=== PATIENT | male | born 1995 | race Two or more races ===

== ENCOUNTER 2025-03-16 17:13 | Emergency (ER) | payer MEDICAID, SELFPAY ==
[2025-03-16 17:55] VITALS: BP 159/96; PULSE 110; RESP 18; TEMP 37.1; O2SAT 98; BMI 28.3
--- NOTE | 2025-03-16 18:01 | EKG_ITS ---
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
--- NOTE | 2025-03-16 18:02 | PD.EDRME ---
Rapid Medical Screening Exam RME Arrival date/time: 03/16/25 17:13 Chief Complaint: Chest Pain Time Seen by Provider: 03/16/25 17:55 Vital signs: Vital Signs Temperature 98.8 F 03/16/25 17:55 Pulse Rate 110 H 03/16/25 17:55 Respiratory Rate 18 03/16/25 17:55 Blood Pressure 159/96 H 03/16/25 17:55 Pulse Oximetry (%) 98 03/16/25 17:55 Oxygen Delivery Method Room Air 03/16/25 17:55
--- NOTE | 2025-03-16 18:07 | PD.EDRME ---
Rapid Medical Screening Exam E Arrival date/time: 03/16/25 17:13 29-year-old male presents to the emergency department with a complaint of chest pain as well as intermittent constipation as well as a rash to the face. Patient complains of being an alcoholic. Chief Complaint: Chest Pain Time Seen by Provider: 03/16/25 17:55 Vital signs: Vital Signs Temperature 98.8 F 03/16/25 17:55 Pulse Rate 110 H 03/16/25 17:55 Respiratory Rate 18 03/16/25 17:55 Blood Pressure 159/96 H 03/16/25 17:55 Pulse Oximetry (%) 98 03/16/25 17:55 Oxygen Delivery Method Room Air 03/16/25 17:55 Vital signs reviewed by provider: Yes
[2025-03-16 18:26] LABS: Collection Type, Urine Clean Catch; RBC,Urine 0 /hpf (0-3); Squamous Epithelial Cell,Urine 0 /hpf (0-5); WBC,Urine 0 /hpf (0-5)
[2025-03-16 18:28] LABS: Basophils # (Auto) 0.1 Thou/mm3 (0.0-0.2); Basophils % (Auto) 2 % (0-2.5); Eosinophils # (Auto) 0.1 Thou/mm3 (0.0-0.5); Eosinophils % (Auto) 1 % (0-10); Hematocrit 43.7 % (41.0-53.0); Immature Granulocytes % (Auto) 0 % (0-0); Immature Granulocytes Auto 0.02 Thou/mm3 (0.00-0.00); Lymphocytes # (Auto) 3.4 Thou/mm3 (1.0-4.8); Lymphocytes % (Auto) 44 % (10-50); Mean Corpuscular HGB Conc 36.6 g/dl (31.0-37.0); Mean Corpuscular Hemoglobin 31.9 pg (25.0-35.0); Mean Corpuscular Volume 87 fL (80-100); Monocytes # (Auto) 0.7 Thou/mm3 (0.0-0.8); Monocytes % (Auto) 9 % (0-12); Neutrophils # (Auto) 3.5 Thou/mm3 (1.8-7.7); Neutrophils % (Auto) 45 % (37-80); Nucleated Red Blood Cell % 0 /100 WBC (0); Platelet Count 329 Thou/mm3 (140-440); RDW Standard Deviation 44.5 fL (35.1-43.9); Red Blood Count 5.02 Miln/mm3 (4.50-5.90); White Blood Count 7.9 Thou/mm3 (3.8-10.6)
[2025-03-16 18:38] LABS: Bacteria,Urine Rare; Bilirubin,Urine Negative (Negative); Blood,Urine Negative (Negative); Clarity,Urine Clear (Clear/Hazy); Color,Urine Lt-Yellow (Lt Yel-Yel); Glucose, Urine Negative (Negative); Ketones,Urine Negative (Negative); Leukocyte Esterase,Urine Negative (Negative); Nitrite,Urine Negative (Negative); PH,Urine 6.5 (5.0-7.0); Protein,Urine 1+ (Neg - Trace); Specific Gravity,Urine 1.009 (1.001-1.035); Urobilinogen,Urine Negative mg/dL (0.0-1.0)
[2025-03-16 18:43] LABS: Amphetamine/Methamp Scrn,U Negative (Negative); Barbiturate Screen,Urine Negative (Negative); Benzodiazepines Screen,Urine Negative (Negative); Benzoylecgonine Screen, Ur Negative (Negative); Fentanyl Screen,Urine Negative (Negative); Opiate Screen,Urine Negative (Negative); THC Screen,Urine Positive (Negative)
[2025-03-16 18:52] LABS: B-Type Natriuretic Peptide < 20 pg/mL (0-100)
[2025-03-16 19:04] LABS: Alanine Aminotransferase 471 U/L (10-49); Albumin, Serum 5.4 gm/dL (3.5-5.0); Albumin/Globulin Ratio 1.9 (1.2-2.2); Alcohol, Blood Medical 310.3 mg/dL (0-10.0); Alkaline Phosphatase 120 U/L (46-116); Anion Gap 14 (7-16); Aspartate Amino Transferase 451 U/L (0-34); BUN/Creatinine Ratio 8 Ratio (12-20); Bilirubin,Total 1.3 mg/dL (0.3-1.2); Blood Urea Nitrogen 7 mg/dL (9-23); Calcium 9.5 mg/dL (8.3-10.6); Calcium (Corrected) 9.5 mg/dL (8.5-10.1); Carbon Dioxide 21.9 mMol/L (20.0-31.0); Chloride 106 mMol/L (98-107); Creatinine (Component) 0.9 mg/dL (0.6-1.3); Estimated Creatinine Clearance 98.2 mL/min (>60); Globulin 2.8 gm/dL (2.3-3.5); Glucose 103 mg/dL (74-106); Osmolality,Calculated 281 (275-295); Potassium 3.5 mMol/L (3.4-5.1); Sodium 142 mMol/L (136-145); Total Protein 8.2 gm/dL (5.7-8.2); Troponin I < 0.020 ng/mL (0.0-0.045); eGFR > 60 See Note
[2025-03-16 19:25] LABS: Partial Thromboplastin Time 24.2 Seconds (22.0-36.0); Prothrombin Time 10.6 Seconds (9.0-12.2)
[2025-03-16 20:51] VITALS: BP 156/101; PULSE 105; RESP 19; TEMP 36.9; O2SAT 95
--- NOTE | 2025-03-16 21:30 | PD.EDADULT ---
ED General RME/HPI General Chief complaint: Chest Pain Stated complaint: CHEST PRESSURE & CRAMPING (THINK I HACE CHIRROSIS) Time Seen by Provider: 03/16/25 17:55 Arrival date/time: 03/16/25 17:13 RME / HPI RME / HPI narrative: Dr. Cruz?s Main ED Evaluation: 29yo male with a history of alcohol abuse presents to the ED for a chief complaint of alcohol intoxication. Patient states I am an alcoholic and was requesting to know what his labs show. Patient does not have any medical complaints at this time. Patient denies any chest pain, abdominal pain, shortness of breath, headache or any other associated symptoms. NKA. Related Data Previous Rx's ?Medication ?Instructions ?Recorded ibuprofen 800 mg tablet 800 mg PO TID PRN pain #30 tabs 08/20/21 Allergies Allergy/AdvReac Type Severity Reaction Status Date / Time No Known Allergies Allergy Verified 03/16/25 17:18 Review of Systems Review of Systems Systems Reviewed: All systems reviewed, normal except as documented Past Medical History Social History SMOKING STATUS: Never smoker ED Exam Narrative Physical exam: GENERAL APPEARANCE: AxOx4, generally well-appearing, no acute distress. HEENT: NC, AT. MMM. EOMI, clear conjunctiva, oropharynx clear. NECK: Supple without lymphadenopathy. No stiffness or restricted ROM. HEART: Normal rate and regular rhythm, normal S1/S1, no m/r/g LUNGS: CTAB, moving air well. No crackles or wheezes are heard. ABDOMEN: Soft, nontender, nondistended with good bowel sounds heard. BACK: No midline C/T/L spine pain or deformity, No CVAT, no obvious deformity. EXTREMITIES: Without cyanosis, clubbing or edema. MUSCULOSKELETAL: FROM of all major joints, no chest tenderness NEUROLOGICAL: Grossly nonfocal. Alert and oriented, moving all 4 extremities. CN not formally tested but appear grossly intact. Observed to ambulate with normal gait. Skin: Warm and dry without any rash. Course Quality Measures none Orders Category Date Time Status EKG (ED ONLY) *Do not use* NOW Care 03/16/25 18:01 Completed EKG (ED Only) Stat Exams 03/16/25 18:01 Draft Alcohol, Blood Medical Stat Lab 03/16/25 18:10 Completed B-Type Natriuretic Peptide Stat Lab 03/16/25 18:10 Completed CBC Stat Lab 03/16/25 18:10 Completed Comprehensive Metabolic Panel Stat Lab 03/16/25 18:10 Completed Drug Screen,Urine Stat Lab 03/16/25 18:10 Completed Magnesium Stat Lab 03/16/25 18:10 Completed Partial Thromboplastin Time Stat Lab 03/16/25 18:10 Completed Prothrombin Time with INR Stat Lab 03/16/25 18:10 Completed Troponin I Stat Lab 03/16/25 18:10 Completed Urinalysis Stat Lab 03/16/25 18:10 Completed Vital Signs Vital signs: Vital Signs Temperature 98.8 F 03/16/25 17:55 Pulse Rate 110 H 03/16/25 17:55 Respiratory Rate 18 03/16/25 17:55 Blood Pressure 159/96 H 03/16/25 17:55 Pulse Oximetry (%) 98 03/16/25 17:55 Oxygen Delivery Method Room Air 03/16/25 17:55 Discharge Plan Plan Patient Disposition: HOME (Self Care) Patient condition on transfer: Stable Prescriptions/Referrals Prescriptions/Med Rec: No Action ibuprofen 800 mg tablet 800 mg PO TID PRN (Reason: pain) Qty: 30 0RF Referrals: No Primary/Family,Physician [Primary Care Provider] - In 1 week Problem List Clinical Impression: Alcohol abuse, Alcohol intoxication, Acute alcoholic hepatitis Patient/Caregiver Discharge Instructions Education Materials: ED Alcohol Intoxication, ED Alcohol Abuse Additional Instructions: Do not drink alcohol in excess, consider stopping alcohol completely for better health. You can follow-up with your primary care doctor and or [facility] if you feel ready for alcohol and/or drug rehabilitation. Print Language: Kinyarwanda Stand Alone Forms: Victoria Award Info., Patient Portal Info Letter MDM Narrative MDM hospital course (for use when minimal MDM required): Scribe Attestation: 03/16/25 Beryl Steiner am scribing for and in the presence of Dr. Cruz. Clinical Information Provided by: patient Medical Records reviewed [facility] (Per chart review, patient has no relevant previous ED visits to this facility.) Meds/Rx considered, not ordered None Labs/Rad/Tests considered, not ordered None Chronic Illness/Social Conditions which may negatively complicate care or outcome(s)-explain: None or not applicable EKG Interpretation EKG #1: EKG Interpretation: EKG done at 1803, NSR, rate of 99, normal axis, normal intervals, no acute ST or T wave changes, according to my interpretation. Labs Labs: Interpreted by me Lab(s) Interpretation(s): CBC is normal, LFTs are elevated, Troponin is normal, BNP is normal, UA is unremarkable, UDS is positive for marijuana, Blood Alcohol is 310.3, according to my interpretation. Medication Administration(s) none Diagnosis Differential Diagnosis ED Complaint MDM: alcohol abuse, alcohol intoxication, drug use
== END 2025-03-16 21:52 | disposition home or self-care (01) ==
PROVIDERS: Nurse Practitioner Family; Emergency Provider Emergency Medicine
DX: F10.129 Alcohol abuse with intoxication, unspecified (principal); K70.10 Alcoholic hepatitis without ascites; Y90.8 Blood alcohol level of 240 mg/100 ml or more
CPT/HCPCS: 36415; 80053; 80307; 80320; 81001; 83735; 83880; 84484; 85025; 85610; 85730; 93005; 99283; G0480